=== PATIENT | male | born 1990 | race Caucasian/White ===

== ENCOUNTER 2021-06-18 14:40 | Emergency (ER) | payer BC ==
[2021-06-18 15:20] LABS: HEMOGLOBIN 15.7 gm/dl (14.0-17.5); RED BLOOD COUNT 5.06 M/UL (4.20-5.50); WHITE BLOOD COUNT 7.7 K/UL (4.5-11.0)
[2021-06-18 15:56] LABS: BUN/CREATININE RATIO 25 (0-10)
== END 2021-06-18 16:41 | disposition home or self-care (01) ==
LOC: ER1 14:40
PROVIDERS: Emergency Medicine
DX: J06.9 Acute upper respiratory infection, unspecified (principal); F17.200 Nicotine dependence, unspecified, uncomplicated; Z20.822 Contact with and (suspected) exposure to COVID-19
CPT/HCPCS: 0240U; 71045; 80053; 82550; 82553; 83874; 84484; 85025; 85379; 99283